=== PATIENT | female | born 1975 | race Caucasian/White ===

== ENCOUNTER → 2019-02-04 | Outpatient (CLI) | payer OTHER ==
[~2019-02-04] MED LIST: IBUP200T2 PO; PRIL20TA2 PO
--- NOTE | 2019-02-04 17:42 | REPMRS ---
Patient History Family history of breast cancer at age 50 or over in maternal grandmother, endometrial cancer under age 50 in mother. 3D TOMOSYNTHESIS WAS PERFORMED. Digital Mammo Screening Bilat: February 04, 2019 - Exam #: [id number] Bilateral CC and MLO view(s) were taken. Technologist: Christen Billingsley, Technologist FINDINGS: The breast tissue is heterogeneously dense. This may lower the sensitivity of mammography. There is no evidence of cancer on this mammogram. Assessment: BI-RADS/ACR category 2 mammogram. Benign Findings. Recommendation Routine screening mammogram of both breasts in 1 year (for women over age 40). This mammogram was interpreted with the aid of an FDA-approved computer-aided dectection system. Electronically Signed By: Mario Topete MD 02/04/19 0797
== END ==
LOC: M RAD 15:11
PROVIDERS: ATTEND Family Medicine
DX: Z12.31 Encounter for screening mammogram for malignant neoplasm of breast (principal)

== ENCOUNTER → 2019-02-25 | Outpatient (REF) | payer OTHER ==
[2019-02-25 18:56] LABS: BASO # 0.1 10^3/uL (0.0-0.2); BASO % 0.7 % (0.0-1.0); EOS # 0.2 10^3/uL (0.0-0.50); EOS % 2.5 % (0.0-3.0); HEMATOCRIT 42.3 % (36.0-47.0); HEMOGLOBIN 13.9 g/dl (12.0-15.5); LYMPH # 1.4 10^3/uL (1.5-4.5); MEAN CORPUSCULAR HEMOGLOBIN 30.4 pg (27.0-33.0); MEAN CORPUSCULAR HGB CONC 32.9 g/dl (32.0-36.5); MEAN CORPUSCULAR VOLUME 92.6 fl (80.0-96.0); MONO # 0.5 10^3/uL (0.0-0.8); MONO % 6.5 % (0.0-5.0); NEUTROPHILS % 70.5 % (36.0-66.0); PLATELET COUNT, AUTOMATED 255 10^3/uL (150-450); RED BLOOD COUNT 4.57 10^6/uL (4.00-5.40); WHITE BLOOD COUNT 7.1 10^3/uL (4.0-10.0)
[2019-02-25 19:09] LABS: ALBUMIN 3.6 GM/DL (3.2-5.2); ALT/SGPT 36 U/L (12-78); BILIRUBIN,TOTAL 0.4 MG/DL (0.2-1.0); BLOOD UREA NITROGEN 6 MG/DL (7-18); CALCIUM LEVEL 8.8 MG/DL (8.5-10.1); CARBON DIOXIDE LEVEL 27 MEQ/L (21-32); CHLORIDE LEVEL 106 MEQ/L (98-107); CHOLESTEROL LEVEL 222 MG/DL (<200); CREATININE FOR GFR 0.71 MG/DL (0.55-1.30); FREE T4 0.84 NG/DL (0.76-1.46); GLOMERULAR FILTRATION RATE > 60.0 (>58); GLUCOSE, FASTING 106 MG/DL (70-100); HDL CHOLESTEROL 40 MG/DL (>40); LDL CHOLESTEROL 138 MG/DL (<100); NON-HDL-C 182 MG/DL; SODIUM LEVEL 140 MEQ/L (136-145); TOTAL 25(OH) VITAMIN D 10.1 NG/ML (30.0-100.0); TOTAL PROTEIN 6.7 GM/DL (6.4-8.2); TRIGLYCERIDES LEVEL 221 MG/DL (<150)
[2019-02-25 19:39] LABS: HEMOGLOBIN A1c 5.7 %
[2019-02-28 00:11] LABS: Lyme Disease IgG/IgM Antibodie <0.91 ISR (0.00-0.90); Lyme Disease IgM Ab Quantitati <0.80 index (0.00-0.79)
== END ==
LOC: M LAB REF 16:54
PROVIDERS: ATTEND Family Medicine
DX: Z13.228 Encounter for screening for other metabolic disorders (principal)

== ENCOUNTER 2019-05-03 16:32 | Emergency (ER) | payer OTHER ==
[~2019-05-03] VITALS: Ht 162.6 cm; Wt 90.9 kg
[2019-05-03] MEDS ORDERED: SERT-138 (16:42)
[2019-05-03] MEDS ORDERED: ESCI10TA2 (16:42)
[2019-05-03 18:00] LABS: BASO % 0.5 % (0.0-1.0); EOS # 0.2 10^3/uL (0.0-0.50); EOS % 2.3 % (0.0-3.0); HEMATOCRIT 41.2 % (36.0-47.0); HEMOGLOBIN 13.8 g/dl (12.0-15.5); LYMPH # 2.1 10^3/uL (1.5-4.5); LYMPH % 25.2 % (24.0-44.0); MEAN CORPUSCULAR HEMOGLOBIN 31.9 pg (27.0-33.0); MEAN CORPUSCULAR HGB CONC 33.5 g/dl (32.0-36.5); MEAN CORPUSCULAR VOLUME 95.4 fl (80.0-96.0); MONO # 0.6 10^3/uL (0.0-0.8); MONO % 6.9 % (0.0-5.0); NEUTROPHILS # 5.3 10^3/uL (1.8-7.7); NEUTROPHILS % 64.2 % (36.0-66.0); PLATELET COUNT, AUTOMATED 257 10^3/uL (150-450); RED BLOOD COUNT 4.32 10^6/uL (4.00-5.40); WHITE BLOOD COUNT 8.2 10^3/uL (4.0-10.0)
[2019-05-03 18:18] LABS: ERYTHROCYTE SEDIMENTATION RATE 6 mm/hr (0-20)
[2019-05-03 18:30] LABS: BLOOD UREA NITROGEN 6 MG/DL (7-18); CALCIUM LEVEL 9.1 MG/DL (8.5-10.1); CARBON DIOXIDE LEVEL 29 MEQ/L (21-32); CHLORIDE LEVEL 107 MEQ/L (98-107); CREATININE FOR GFR 0.73 MG/DL (0.55-1.30); GLOMERULAR FILTRATION RATE > 60.0 (>58); GLUCOSE, FASTING 94 MG/DL (70-100); POTASSIUM SERUM 3.8 MEQ/L (3.5-5.1); SODIUM LEVEL 142 MEQ/L (136-145)
--- NOTE | 2019-05-03 18:30 | REPVR ---
EXAM: US Duplex Left Lower Extremity Veins, Limited EXAM DATE/TIME: 05/03/2019 5:56 PM CLINICAL HISTORY: 43 years old, female; Pain; Leg, lower; Left; Additional info: Pain, swelling left calf R/O dvt vs superficial phlebitis TECHNIQUE: Imaging protocol: Real-time Duplex ultrasound of the Left Lower Extremity with 2-D byrnes scale, color Doppler flow and spectral waveform analysis with image documentation. Limited exam focused on the left lower extremity veins. COMPARISON: No relevant prior studies available. FINDINGS: Veins appear normally compressible with no intraluminal filling defects. Doppler waveforms and flow directionality are normal. A tributary of the greater saphenous vein demonstrates intraluminal clot within the subcutaneous tissues in the mid calf No abnormal focal fluid collections identified. IMPRESSION: No evidence of deep venous thrombosis in the left lower extremity venous system. Likely superficial thrombophlebitis, medial calf vein Electronically signed by: Marcus Epstein On 05/03/2019 18:30:44 PM
[2019-05-03 18:42] VITALS: BP 130/78
[2019-05-03] MEDS ORDERED: IBUP-1022 PO (18:52)
== END 2019-05-03 18:55 | disposition home or self-care (01) ==
LOC: M ED 16:32
DX: I80.02 Phlebitis and thrombophlebitis of superficial vessels of left lower extremity (principal); K21.9 Gastro-esophageal reflux disease without esophagitis; F41.9 Anxiety disorder, unspecified; F17.200 Nicotine dependence, unspecified, uncomplicated; Z79.899 Other long term (current) drug therapy

== ENCOUNTER → 2020-03-09 | Outpatient (CLI) | payer OTHER ==
[~2020-03-09] MED LIST changes: +ESCI10TA2; +IBUP-1022 PO; +SERT-138
--- NOTE | 2020-03-10 07:28 | REP ---
REASON: Atraumatic pain. FINDINGS: No acute fracture or destructive osseous lesion. Electronically Signed by David Curiel DO 03/10/2020 09:32 A
== END ==
LOC: M WUC 14:11
PROVIDERS: ATTEND Nurse Practitioner Family
DX: M25.531 Pain in right wrist (principal)

== ENCOUNTER → 2020-06-24 | Outpatient (REF) | payer OTHER, MEDICAID ==
[2020-06-24 12:16] LABS: BASO # 0.1 10^3/uL (0.0-0.2); BASO % 0.8 % (0.0-1.0); EOS # 0.2 10^3/uL (0.0-0.5); EOS % 2.5 % (0.0-3.0); HEMATOCRIT 45.5 % (36.0-47.0); HEMOGLOBIN 14.5 g/dl (12.0-15.5); LYMPH # 2.3 10^3/uL (1.5-5.0); LYMPH % 25.8 % (24.0-44.0); MEAN CORPUSCULAR HEMOGLOBIN 29.7 pg (27.0-33.0); MEAN CORPUSCULAR HGB CONC 31.9 g/dl (32.0-36.5); MEAN CORPUSCULAR VOLUME 93.2 fl (80.0-96.0); MONO # 0.5 10^3/uL (0.0-0.8); MONO % 5.8 % (0.0-5.0); NEUTROPHILS # 5.9 10^3/uL (1.5-8.5); NEUTROPHILS % 64.7 % (36.0-66.0); PLATELET COUNT, AUTOMATED 334 10^3/uL (150-450); RED BLOOD COUNT 4.88 10^6/uL (4.00-5.40); WHITE BLOOD COUNT 9.1 10^3/uL (4.0-10.0)
[2020-06-24 12:23] LABS: APPEARANCE, URINE CLEAR (CLEAR); BACTERIA, URINE AUTO NEGATIVE (NEGATIVE); BILIRUBIN, URINE AUTO NEGATIVE (NEGATIVE); BLOOD, URINE BLOOD NEGATIVE (NEGATIVE); COLOR, URINE YELLOW (YELLOW); GLUCOSE, URINE (UA) AUTO NEGATIVE (NEGATIVE); KETONE, URINE AUTO NEGATIVE (NEGATIVE); LEUKOCYTE ESTERASE, URINE AUTO NEGATIVE (NEGATIVE); NITRITE, URINE AUTO NEGATIVE (NEGATIVE); PROTEIN, URINE AUTO NEGATIVE (NEGATIVE); RBC, URINE AUTO 1 /HPF (0-3); SPECIFIC GRAVITY URINE AUTO 1.014 (1.002-1.035); SQUAMOUS EPITHELIAL CELL UR AU 0 /HPF (0-6); UROBILINOGEN, URINE AUTO 0.2 mg/dL (0.0-2.0); WBC, URINE AUTO 4 /HPF (0-3)
[2020-06-24 12:50] LABS: ALBUMIN 3.6 GM/DL (3.2-5.2); ALT/SGPT 50 U/L (12-78); BILIRUBIN,TOTAL 0.4 MG/DL (0.2-1.0); BLOOD UREA NITROGEN 8 MG/DL (7-18); CALCIUM LEVEL 9.1 MG/DL (8.5-10.1); CARBON DIOXIDE LEVEL 29 MEQ/L (21-32); CHLORIDE LEVEL 107 MEQ/L (98-107); CHOLESTEROL LEVEL 217 MG/DL (<200); CHOLESTEROL RISK RATIO 4.254 (<5); CREATININE FOR GFR 0.79 MG/DL (0.55-1.30); GLOMERULAR FILTRATION RATE > 60.0 (>58); GLUCOSE, FASTING 96 MG/DL (70-100); HDL CHOLESTEROL 51 MG/DL (>40); LDL CHOLESTEROL 145 MG/DL (<100); NON-HDL-C 166 MG/DL; POTASSIUM SERUM 4.4 MEQ/L (3.5-5.1); SODIUM LEVEL 139 MEQ/L (136-145); TOTAL PROTEIN 6.8 GM/DL (6.4-8.2); TRIGLYCERIDES LEVEL 107 MG/DL (<150)
[2020-06-24 13:05] LABS: HEMOGLOBIN A1c 5.5 %
== END ==
LOC: M LAB REF 11:39
PROVIDERS: ATTEND Nurse Practitioner Family
DX: E78.5 Hyperlipidemia, unspecified (principal); E66.9 Obesity, unspecified; R73.03 Prediabetes; F17.200 Nicotine dependence, unspecified, uncomplicated; K21.9 Gastro-esophageal reflux disease without esophagitis; F41.1 Generalized anxiety disorder

== ENCOUNTER 2020-08-23 15:14 | Inpatient (IN) | payer OTHER, MEDICAID ==
[~2020-08-23] VITALS: Ht 163.8 cm; Wt 89.7 kg
[2020-08-23] MEDS ORDERED: NS 1,000 ML IV ONE (17:15)
[2020-08-23] MEDS ORDERED: MORPHINE 4 MG/ML 1ML VIAL/SYRINGE (J2270) IV ONE (17:15)
[2020-08-23] MEDS ORDERED: NORCO, ANEXSIA 5/325MG TABLET (HYDROcodone/ACETAMINOPHEN) PO ONE (17:30)
[2020-08-23] MEDS ORDERED: ACETAMINOPHEN 500 MG TAB PO ONE (17:30)
[2020-08-23 17:48] LABS: BASO # 0.1 10^3/uL (0.0-0.2); BASO % 0.4 % (0.0-1.0); EOS % 0.2 % (0.0-3.0); HEMATOCRIT 44.1 % (36.0-47.0); HEMOGLOBIN 14.8 g/dl (12.0-15.5); LYMPH # 1.9 10^3/uL (1.5-5.0); LYMPH % 15.1 % (24.0-44.0); MEAN CORPUSCULAR HEMOGLOBIN 31.1 pg (27.0-33.0); MEAN CORPUSCULAR HGB CONC 33.6 g/dl (32.0-36.5); MEAN CORPUSCULAR VOLUME 92.6 fl (80.0-96.0); NEUTROPHILS # 9.6 10^3/uL (1.5-8.5); NEUTROPHILS % 75.8 % (36.0-66.0); PLATELET COUNT, AUTOMATED 259 10^3/uL (150-450); RED BLOOD COUNT 4.76 10^6/uL (4.00-5.40); WHITE BLOOD COUNT 12.6 10^3/uL (4.0-10.0)
[2020-08-23 17:59] LABS: ALBUMIN 3.5 GM/DL (3.2-5.2); ALT/SGPT 28 U/L (12-78); BILIRUBIN,DIRECT 0.3 MG/DL (0.0-0.2); BILIRUBIN,TOTAL 0.8 MG/DL (0.2-1.0); BLOOD UREA NITROGEN 3 MG/DL (7-18); CALCIUM LEVEL 9.3 MG/DL (8.5-10.1); CARBON DIOXIDE LEVEL 30 MEQ/L (21-32); CHLORIDE LEVEL 99 MEQ/L (98-107); CREATININE FOR GFR 0.64 MG/DL (0.55-1.30); GLOMERULAR FILTRATION RATE > 60.0 (>58); GLUCOSE, FASTING 97 MG/DL (70-100); LIPASE 37 U/L (73-393); POTASSIUM SERUM 3.3 MEQ/L (3.5-5.1); SODIUM LEVEL 135 MEQ/L (136-145); TOTAL PROTEIN 7.2 GM/DL (6.4-8.2)
[2020-08-23 18:06] LABS: HCG, SERUM QUALITATIVE NEGATIVE (NEGATIVE)
[2020-08-23] MEDS ORDERED: ISOVUE-370 76% 100ML VIAL As Ordered ONE (19:07)
--- NOTE | 2020-08-23 20:12 | REPVR ---
PROCEDURE INFORMATION: Exam: CT Abdomen And Pelvis With Contrast Exam date and time: 08/23/2020 7:35 PM Age: 44 years old Clinical indication: Abdominal pain; Localized; Right lower quadrant (rlq); Additional info: Periumbilical pain radiating to rlq TECHNIQUE: Imaging protocol: Computed tomography of the abdomen and pelvis with intravenous contrast. Radiation optimization: All CT scans at this facility use at least one of these dose optimization techniques: automated exposure control; mA and/or kV adjustment per patient size (includes targeted exams where dose is matched to clinical indication); or iterative reconstruction. Contrast material: ISOVUE 370; Contrast volume: 100 ml; Contrast route: INTRAVENOUS (IV); COMPARISON: No relevant prior studies available. FINDINGS: Lungs: Small ground-glass opacity right lung base measures 4.6 mm.No routine follow-up is indicated. (Reference: Lilly) Liver: Normal. No mass. Gallbladder and bile ducts: Normal. No calcified stones. No ductal dilation. Pancreas: Normal. No ductal dilation. Spleen: Normal. No splenomegaly. Adrenal glands: Normal. No mass. Kidneys and ureters: 1.7 cm complex partially solid enhancing exophytic lesion projecting off the lateral margin of the right kidney measures 1.7 cm. Findings worrisome for a small renal neoplasm. Stomach and bowel: Inflammatory changes demonstrated in the duodenal sweep, likely reactive related to adjacent inflammation. Appendix: There is gross expansion of the appendix with cystic dilatation of the tip of the appendix measuring 2.7 cm demonstrating mural calcification. Extensive periappendiceal inflammation is demonstrated as well. No drainable abscess demonstrated at this time. Intraperitoneal space: Unremarkable. No free air. No significant fluid collection. Vasculature: The aortoiliac vessels demonstrate mild atherosclerotic calcification. Lymph nodes: Unremarkable. No enlarged lymph nodes. Urinary bladder: Unremarkable as visualized. Reproductive: 2.1 cm cyst right ovary likely functional. Bones/joints: Moderate to severe central spinal stenosis L4-L5. Soft tissues: Unremarkable. IMPRESSION: 1. Abnormal appendix as described above. Findings suggestive of appendicitis associated with mucocele of the appendix. 2. 1.7 cm complex partially solid enhancing exophytic lesion projecting off the lateral margin of the right kidney measures 1.7 cm. Findings worrisome for a small renal neoplasm. COMMENTS: Consistent with the [employer]'s Incidental Findings Committee white paper (J Am Cole Radiol 2018): Any incidental renal lesion less than 1 cm or classified as too small to characterize, or any incidental cystic renal lesion characterized as simple-appearing, is likely benign. No follow-up imaging is recommended for these lesions per consensus recommendations based on imaging criteria. REFERENCES: Lilly Ta, et al. Guidelines for Management of Incidental Pulmonary Nodules Detected on CT Images: From the Fleischner Society 2017. Radiology. 2017;284(1):228-243. Electronically signed by: Bean Natarajan On 08/23/2020 20:11:59 PM
[2020-08-23] MEDS ORDERED: OMEP-218 PO (20:58)
[2020-08-23] MEDS ORDERED: VITA50005 PO (20:58)
[2020-08-23] MEDS ORDERED: LEXA1TAB PO (20:58)
[2020-08-23] MEDS ORDERED: IBUP1TAB7 PO (20:58)
[2020-08-23] MEDS ORDERED: metroNIDAZOLE 500 MG in IV 1 EA IV ONE (22:00)
[2020-08-23] MEDS ORDERED: CIPROFLOXACIN 400 MG in IV 1 EA IV ONE (22:00)
[2020-08-23] MEDS ORDERED: ONDANSETRON 4MG/2ML VIAL As Ordered ONE (22:45)
[2020-08-23] MEDS ORDERED: propofoL 200 MG/20 ML VIAL As Ordered ONE (22:45)
[2020-08-23] MEDS ORDERED: ROCURONIUM BROMIDE 50 MG/5 ML VIAL As Ordered ONE (22:45)
[2020-08-23] MEDS ORDERED: LIDOCAINE 2% 100MG/5ML SDV (FOR ANES.) As Ordered ONE (22:45)
[2020-08-23] MEDS ORDERED: MIDAZOLAM INJ 2MG/2ML VIAL (J2250 PER 1MG) As Ordered ONE (22:47)
[2020-08-23] MEDS ORDERED: dexameTHASONE 4 MG/ML 1ML VIAL (J1100 PER 1MG) As Ordered ONE (22:48)
[2020-08-23] MEDS ORDERED: fentaNYL 100 MCG/2 ML INJECTION (J3010) As Ordered ONE (22:49)
[2020-08-23] MEDS ORDERED: BUPIVACAINE HCL 0.25% 30ML VIAL As Ordered ONE (23:33)
[2020-08-23] MEDS ORDERED: metroNIDAZOLE/NACL 500MG(5MG/ML) 100ML BAG (S0030) As Ordered ONE (23:33)
[2020-08-23] MEDS ORDERED: KETOROLAC 60MG 2ML VIAL As Ordered ONE (23:47)
[2020-08-23] MEDS ORDERED: ACETAMINOPHEN 1000MG 100ML IV BTL (OFIRMEV) (J0131 PER 10MG) As Ordered ONE (23:57)
[2020-08-24] VITALS (8 sets, daily range): BP systolic 114–154; BP diastolic 72–88
[2020-08-24] MEDS ORDERED: ROCURONIUM BROMIDE 50 MG/5 ML VIAL As Ordered ONE (00:22)
[2020-08-24] MEDS ORDERED: PHENYLephrine HCL 500 MCG/5 ML (100MCG/ML) SYRINGE (J2370) As Ordered ONE (00:29)
[2020-08-24] MEDS ORDERED: fentaNYL 100 MCG/2 ML INJECTION (J3010) As Ordered ONE ×2 (00:33→02:24)
[2020-08-24] MEDS ORDERED: SUGAMMADEX SODIUM 500 MG/5 ML VIAL (BRIDION) As Ordered ONE (00:37)
[2020-08-24] MEDS ORDERED: HYDROmorphone HCL 2 MG/ML 1ML VIAL (J1170) As Ordered ONE (01:46)
[2020-08-24] MEDS ORDERED: LR 1,000 ML IV SCH (02:00)
[2020-08-24] MEDS ORDERED: ONDANSETRON 4MG/2ML VIAL IV PRN ×2 (02:00→02:15)
[2020-08-24] MEDS ORDERED: METOCLOPRAMIDE INJ 10MG/2ML VIAL (J2765 PER 1) IV PRN (02:00)
[2020-08-24] MEDS ORDERED: oxyCODONE 5MG TAB PO PRN (02:00)
[2020-08-24] MEDS: fentaNYL 100 MCG/2 ML INJECTION (J3010) IV PRN ×4 (02:25→02:40)
[2020-08-24] MEDS: LR 1,000 ML IV SCH ×3 (03:37→14:10)
[2020-08-24] MEDS: IBUPROFEN 600MG TAB PO PRN ×2 (03:48→10:01)
[2020-08-24] MEDS: MORPHINE 2 MG/ML 1ML VIAL (J2270) IV PRN ×3 (05:40→22:17)
[2020-08-24] MEDS: ESCITALOPRAM OXALATE 10 MG TAB (LEXAPRO) PO SCH (08:10)
[2020-08-24] MEDS: metroNIDAZOLE 500 MG in IV 1 EA IV SCH ×2 (08:10→15:58)
[2020-08-24] MEDS: CIPROFLOXACIN 400 MG in IV 1 EA IV SCH ×2 (10:02→22:18)
[2020-08-24 10:18] LABS: BASO % 0.1 % (0.0-1.0); HEMATOCRIT 36.8 % (36.0-47.0); HEMOGLOBIN 12.2 g/dl (12.0-15.5); LYMPH # 1.2 10^3/uL (1.5-5.0); LYMPH % 8.5 % (24.0-44.0); MEAN CORPUSCULAR HEMOGLOBIN 30.6 pg (27.0-33.0); MEAN CORPUSCULAR HGB CONC 33.2 g/dl (32.0-36.5); MEAN CORPUSCULAR VOLUME 92.2 fl (80.0-96.0); MONO % 7.2 % (0.0-5.0); NEUTROPHILS # 11.4 10^3/uL (1.5-8.5); PLATELET COUNT, AUTOMATED 235 10^3/uL (150-450); RED BLOOD COUNT 3.99 10^6/uL (4.00-5.40); WHITE BLOOD COUNT 13.8 10^3/uL (4.0-10.0)
[2020-08-24] MEDS: ACETAMINOPHEN TAB 650MG DOSE (2X325MG) PO PRN (13:47)
[2020-08-25] MEDS: metroNIDAZOLE 500 MG in IV 1 EA IV SCH ×2 (00:17→07:48)
[2020-08-25] MEDS: IBUPROFEN 600MG TAB PO PRN (01:51)
[2020-08-25 02:00] VITALS: BP 119/79
[2020-08-25] MEDS: MORPHINE 2 MG/ML 1ML VIAL (J2270) IV PRN (02:36)
[2020-08-25 06:00] VITALS: BP 121/80
[2020-08-25] MEDS: ACETAMINOPHEN TAB 650MG DOSE (2X325MG) PO PRN (06:23)
[2020-08-25 06:48] LABS: BASO % 0.4 % (0.0-1.0); EOS # 0.1 10^3/uL (0.0-0.5); EOS % 0.8 % (0.0-3.0); HEMOGLOBIN 11.5 g/dl (12.0-15.5); LYMPH # 1.8 10^3/uL (1.5-5.0); LYMPH % 21.5 % (24.0-44.0); MEAN CORPUSCULAR HEMOGLOBIN 29.2 pg (27.0-33.0); MEAN CORPUSCULAR HGB CONC 31.1 g/dl (32.0-36.5); MEAN CORPUSCULAR VOLUME 93.9 fl (80.0-96.0); MONO # 0.9 10^3/uL (0.0-0.8); MONO % 10.1 % (0.0-5.0); NEUTROPHILS # 5.7 10^3/uL (1.5-8.5); NEUTROPHILS % 66.6 % (36.0-66.0); PLATELET COUNT, AUTOMATED 249 10^3/uL (150-450); RED BLOOD COUNT 3.94 10^6/uL (4.00-5.40); WHITE BLOOD COUNT 8.5 10^3/uL (4.0-10.0)
[2020-08-25] MEDS: ESCITALOPRAM OXALATE 10 MG TAB (LEXAPRO) PO SCH (07:48)
[2020-08-25] MEDS ORDERED: BACITRACIN OINTMENT 30GM TUBE TOP SCH (09:00)
[2020-08-25] MEDS ORDERED: OMEPRAZOLE 20 MG CAP PO SCH (09:00)
[2020-08-25] MEDS ORDERED: NORCO, ANEXSIA 5/325MG TABLET (HYDROcodone/ACETAMINOPHEN) PO PRN (09:00)
[2020-08-25 10:00] VITALS: BP 121/81
[2020-08-25] MEDS: CIPROFLOXACIN 400 MG in IV 1 EA IV SCH (10:11)
[2020-08-25 14:00] VITALS: BP 120/79
[2020-08-25] MEDS ORDERED: HYDR-3715 PO (17:07)
[2020-08-25] MEDS ORDERED: CIPR500T3 PO (17:07)
[2020-08-25] MEDS ORDERED: FLAG500T PO (17:07)
--- NOTE | 2020-08-26 13:02 | RO ---
OPERATIVE NOTE DATE OF OPERATION: 08/23/2020 Procedure concluded in the talent acquisition relationship manager of 08/24/2020. PREOPERATIVE DIAGNOSIS: Acute appendicitis. POSTOPERATIVE DIAGNOSIS: Adhesions secondary to prior hernia repair and acute appendicitis with abscess. PROCEDURE PERFORMED: Laparoscopic lysis of adhesions with appendectomy and drainage of abscess. SURGEON: Balta Morgan MD ANESTHESIA: General. INDICATIONS FOR THE PROCEDURE: The patient is a 44-year-old woman who presented to the emergency department with roughly three day history of abdominal discomfort. She was found to have an elevation of the white count with tenderness in the right mid and upper abdomen. CT scan showed evidence for appendicitis with marked dilation of the tip of the appendix with the location of the appendix in the retroperitoneum on the right medial to the ascending colon and posterior to the terminal ileum. She was scheduled for urgent appendectomy. OPERATIVE PROCEDURE: The patient was brought to the operating room and placed on the table in supine position. She was placed under general endotracheal anesthesia. The patient's abdomen was prepped and draped in sterile fashion. She had undergone a previous open umbilical hernia repair with placement of mesh. An initial trocar site was placed in the left upper quadrant. 0.25% Marcaine was infiltrated at each of the trocar sites as needed. A Veress needle was inserted and after positive hanging drop test the abdomen was insufflated with CO2 gas. A 5 mm port was placed over a 5 mm scope and advanced through the abdominal wall without difficulty. Initial examination showed fairly extensive adhesions of the omentum to the anterior abdominal wall with evidence for a small piece of mesh at the umbilicus. A second 5 mm port was placed in the left lower quadrant. Using cauterizing scissors the adhesions to the anterior abdominal wall were taken down using combination of sharp and cautery dissection. After the adhesions had been eliminated a third 5 mm port was placed in the medial portion of the right lower quadrant. Graspers were inserted. Cecum was identified in the right mid abdomen and this was elevated. The very base of the appendix was visible but the appendix then tracked superiorly posterior to the terminal ileum. There was significant adhesion to the appendix in the retroperitoneum and it was not possible to readily elevate the terminal ileum. The patient was rolled slightly to the left and tilted into Trendelenburg position to try to shift the small bowel out of the way somewhat. The terminal ileum was adherent down over the appendix. I elected to transect the base of the appendix and then remove the appendix in retrograde fashion. Therefore, opening was created through the mesoappendix at the appendiceal base. An 11 mm port was placed through a short supraumbilical incision and a stapler was inserted with a blue load and placed across the base of the appendix and fired. Hemostasis was excellent. The base of the appendix was then grasped and elevated. Dissection was then begun to try to remove the appendix from the retroperitoneum. I obtained a Harmonic scalpel to use during this portion of the procedure. Working through the tissues of the mesoappendix and creating a plane by blunt and cautery dissection between the appendix and the surrounding tissues I was able to elevate the terminal ileum away from the markedly inflamed appendix. In the course of dissection the retroperitoneal duodenum was exposed but protected. In the course of dissection an abscess was entered and large amount of thick purulent fluid was released just into the immediate area and this was immediately suctioned and irrigated. Dissection proceeded lifting the cecum and freeing the ascending colon from the retroperitoneum to better expose the appendix. Ultimately the appendix was completely freed. This was placed in an Endopouch with an attached portion of the mesoappendix. The area of the dissection was then copiously irrigated with saline and inspected. The cecum and proximal ascending colon had been completely freed to expose the area. There was a segment of the retroperitoneal duodenal, perhaps 4-5 cm in length that was completely exposed but there was no evidence of injury. The overlying terminal ileum was also intact but showed an area of inflammation where it had been attached down over the inflamed appendix and the abscess. I elected to place a drain into this area. A separate small incision was made in the right flank area far lateral in the right upper quadrant. A 19-Fijian Joni drain was inserted through the 11mm port and directed out through the right flank incision. This was directed posterior to the ascending colon and across through the retroperitoneum behind the terminal ileum in the area of her previous abscess. The patient was then rolled back to a flat position. The abdomen was deflated and the trocars were removed. The appendix was recovered through the supraumbilical site which necessitated extending the incision slightly. This was sent for permanent pathology. The fascia at the supraumbilical site was closed with 2-0 Vicryl. The skin incisions were all closed with buried 4-0 Vicryl and Steri-Strips. The drain was sutured to the skin with 2-0 silk and then dressed with Chlorhexidine and gluconate Op-Site. The drain was connected to Ken-Aleman bulb. The patient tolerated the procedure well without apparent complications. She was awakened in the operating room, extubated and moved to the recovery room in stable condition. NHAN
--- NOTE | 2020-08-26 18:41 | IPN ---
PROGRESS NOTE DATE: 08/25/2020 HISTORY: The patient is now postop day approximately one and a half from her laparoscopic appendectomy for appendicitis with abscess. Her surgery was completed at approximately 2:00 in the morning on the . A drain was placed into the bed of the abscess. She has done very well over the last 24 hours. PHYSICAL EXAMINATION: Vital signs showed that the patient has been afebrile over the last 24 hours. Her pulse is in the 80s generally with a blood pressure that is good and a good room air oxygen saturation. Intake and output shows that yesterday she had 4600 mL in, 3 liters of which was oral and she had 1500 mL out. Her drain put out 110 mL yesterday with about 40 mL today. The patient is sitting up in bed. She appears somewhat uncomfortable. Heart exam shows a regular rhythm and the lungs are clear. The abdomen is obese. Her drain exits the right flank and has a minimal amount of serosanguineous fluid in it. Her dressings are clean and dry. She has some mild tenderness fairly diffusely but not out of proportion to what would be expected. She does have active bowel sounds. Laboratory studies show a white count today of 8, hemoglobin 12, hematocrit 37, and a platelet count of 249,000. Her differential count has nearly normalized with 67% neutrophils, 22% lymphocytes, and 10% monocytes. Her pathology report revealed acute appendicitis with periappendicitis and was negative for tumor. IMPRESSION: The patient is doing well now a day and a half postop from her appendicitis with abscess. I had her drain removed after initially seeing her on the morning of the . Later in the day she seemed much more comfortable with the drain out and is eager for discharge. PLAN: The patient will be discharged home today. She will be discharged on antibiotics consisting of Ciprofloxacin 500 mg by mouth twice daily and metronidazole 500 mg by mouth three times daily both of which will be continued for three days to complete approximately five days of antibiotics. I will also provide her a prescription for [place] to take on an as needed basis with a total of eight tablets provided. She will continue her other preadmission medications. She was advised against any strenuous activity for two weeks. She can shower tomorrow when it is 24 hours since her drain has been removed. She should call the office on Sunday the to arrange a followup in seven to ten days from now. She should call the office for any problems. NHAN
== END 2020-08-25 17:25 | disposition home or self-care (01) | DRG 225 ==
LOC: M ED 15:14 → M SDC 15:15 → M MS5PR 08-24 03:20 → M SDC 08-24 18:32 → M MS5PR 08-24 18:33
PROVIDERS: ADMIT Surgery; ATTEND Surgery
PROC: 0DTJ4ZZ Resection of Appendix, Percutaneous Endoscopic Approach (ICD-10-PCS; principal; 2020-08-23 20:30)
DX: K35.33 Acute appendicitis with perforation, localized peritonitis, and gangrene, with abscess (principal); F32.9 Major depressive disorder, single episode, unspecified; Z20.828 Contact with and (suspected) exposure to other viral communicable diseases; Z88.0 Allergy status to penicillin; Z88.1 Allergy status to other antibiotic agents; F41.9 Anxiety disorder, unspecified

== ENCOUNTER → 2021-01-12 | Outpatient (CLI) | payer OTHER ==
[~2021-01-12] MED LIST changes: +CIPR500T3 PO; +ESCI10TA16; -ESCI10TA2; +FLAG500T PO; +HYDR-3715 PO; +IBUP1TAB7 PO; +LEXA1TAB PO; +OMEP-218 PO; +VITA50005 PO
--- NOTE | 2021-01-12 16:54 | REPMRS ---
Patient History The patient states she has not had a clinical breast exam in over a year. Family history of breast cancer at age 50 or over in maternal grandmother, breast cancer at age 61 in mother. 15lb intentional weight loss. Patient states no breast complaints today. Patient has signed MRS History Sheet. Digital Woman Screen Mammo: January 12, 2021 - Exam #: [id number] Bilateral CC and MLO view(s) were taken. Technologist: RT Fabiola Prior study comparison: February 04, 2019, bilateral digital mammo screening bilat, performed at [facility]. FINDINGS: The breast tissue is heterogeneously dense. This may lower the sensitivity of mammography. Screening. Digital screening (2D) mammography was performed bilaterally in the CC and MLO projections. Additionally, breast tomosynthesis (3D mammography) was performed bilaterally in the CC and MLO projections. Todays exam was compared to the prior exams. By history, the patient has no complaints of a palpable breast abnormality or other significant breast complaints. The breasts are unchanged in size and shape.Once again, dense heterogenous fibroglandular elements are seen bilaterally in a stable appearing pattern but to such a degree that the sensitivity of the mammogram in detecting cancer is decreased. There are no richy-soft tissue densities or spiculated masses. There is no internal architectural distortion. There are no suspicious richy-calcific clusters. Skin thickening or nipple retraction is not present. IMPRESSION: BI-RADS Category 2- Benign Findings. There is no evidence of malignant alteration of the breasts. Followup examination recommended in one year. The Volpara volumetric breast density category is C, the breasts are heterogenously dense which may obscure small masses. This mammogram was read with the assistance of [employer],an FDA approved computer aided detection system for mammography. The lifetime Tyrer-Cuzick score is 22.8 % Negative x-ray reports should not delay surgical consultation if a dominant or clinically suspicious mass is present. Not all breast cancers can be identified by mammography. Therefore, we recommend that you continue to perform regular breast self-examination and physical examination and then promptly contact your physician of any concerns or changes. Adenosis and dense breasts may obscure an underlying neoplasm. Assessment: BI-RADS/ACR category 2 mammogram. Benign Findings. Recommendation Routine screening mammogram of both breasts in 1 year. Electronically Signed By: David Curiel DO 01/12/21 [id number]
== END ==
LOC: M WHC 16:00
PROVIDERS: ATTEND Nurse Practitioner Family
DX: Z12.31 Encounter for screening mammogram for malignant neoplasm of breast (principal)

== ENCOUNTER → 2022-08-22 | Outpatient (CLI) | payer OTHER ==
[~2022-08-22] MED LIST changes: +ERGO500029 PO; +OMEP-173 PO; -OMEP-218 PO; -VITA50005 PO
== END ==
LOC: M RAD 12:50
PROVIDERS: ATTEND Pediatrics
DX: R22.2 Localized swelling, mass and lump, trunk (principal)

== ENCOUNTER → 2022-09-08 | Outpatient (CLI) | payer OTHER | LOC: M PLARAD 13:02 | PROVIDERS: ATTEND Pediatrics | DX: R22.2 Localized swelling, mass and lump, trunk (principal) ==

== ENCOUNTER → 2022-11-01 | Outpatient (REF) | payer OTHER | LOC: M LAB REF 16:28 | PROVIDERS: ATTEND Surgery | DX: L72.3 Sebaceous cyst (principal) ==

== ENCOUNTER → 2023-01-17 | Outpatient (REF) | payer OTHER ==
[2023-01-17 17:31] LABS: BASO # 0.1 10^3/uL (0.0-0.2); EOS # 0.2 10^3/uL (0.0-0.5); EOS % 3.1 % (0.0-3.0); HEMOGLOBIN 15.8 g/dl (12.0-15.5); LYMPH # 2.6 10^3/uL (1.5-5.0); LYMPH % 38.6 % (24.0-44.0); MEAN CORPUSCULAR HEMOGLOBIN 31.3 pg (27.0-33.0); MEAN CORPUSCULAR HGB CONC 32.9 g/dl (32.0-36.5); MONO # 0.4 10^3/uL (0.0-0.8); MONO % 6.2 % (2.0-8.0); NEUTROPHILS # 3.4 10^3/uL (1.5-8.5); NEUTROPHILS % 50.5 % (36.0-66.0); PLATELET COUNT, AUTOMATED 304 10^3/uL (150-450); RED BLOOD COUNT 5.05 10^6/uL (4.00-5.40); WHITE BLOOD COUNT 6.8 10^3/uL (4.0-10.0)
[2023-01-17 17:41] LABS: CHOLESTEROL RISK RATIO 4.18 (<5); HDL CHOLESTEROL 50.9 MG/DL (>40); LDL CHOLESTEROL 140.3 MG/DL (<100); NON-HDL-C 162.1 MG/DL
[2023-01-17 17:44] LABS: FOLLICLE STIMULATING HORMONE 77.2 mIU/ML; LUTEINIZING HORMONE 37.9 mIU/ML
== END ==
LOC: M LAB REF 16:31
PROVIDERS: ATTEND Pediatrics
DX: E78.5 Hyperlipidemia, unspecified (principal); D75.1 Secondary polycythemia; N92.6 Irregular menstruation, unspecified; E55.9 Vitamin D deficiency, unspecified; R73.03 Prediabetes

== ENCOUNTER → 2023-10-31 | Outpatient (CLI) | payer OTHER | LOC: M WHC 15:08 | PROVIDERS: ATTEND Pediatrics | DX: Z12.31 Encounter for screening mammogram for malignant neoplasm of breast (principal) ==

== ENCOUNTER → 2024-07-07 | Outpatient (REF) | payer OTHER ==
[2024-07-07 18:41] LABS: THYROID STIMULATING HORMONE 1.837 uIU/ML (0.55-4.78); TOTAL 25(OH) VITAMIN D 53.4 NG/ML (20.0-100.0)
[2024-07-07 18:44] LABS: ALBUMIN 3.5 G/DL (3.2-5.2); ALKALINE PHOSPHATASE 66 U/L (35-104); ALT/SGPT 27 U/L (7.0-40); AST/SGOT 19 U/L (<34); BILIRUBIN,TOTAL 0.4 MG/DL (0.3-1.2); BLOOD UREA NITROGEN 6 MG/DL (9-23); CALCIUM LEVEL 9.5 MG/DL (8.5-10.1); CARBON DIOXIDE LEVEL 28 MMOL/L (20-31); CHLORIDE LEVEL 106 MMOL/L (98-107); CHOLESTEROL LEVEL 169 MG/DL (<200); CHOLESTEROL RISK RATIO 2.77 (<5); CREATININE FOR GFR 0.77 MG/DL (0.55-1.30); GLOMERULAR FILTRATION RATE > 60.0 (>58); GLUCOSE, FASTING 90 MG/DL (60-100); HDL CHOLESTEROL 60.9 MG/DL (>40); LDL CHOLESTEROL 76.7 MG/DL (<100); NON-HDL-C 108.1 MG/DL; POTASSIUM SERUM 4.3 MMOL/L (3.5-5.1); SODIUM LEVEL 142 MMOL/L (136-145); TOTAL PROTEIN 6.6 G/DL (5.7-8.2); TRIGLYCERIDES LEVEL 157 MG/DL (<150)
== END ==
LOC: M LAB REF 17:12
PROVIDERS: ATTEND Pediatrics
DX: E55.9 Vitamin D deficiency, unspecified (principal); E78.5 Hyperlipidemia, unspecified; K21.9 Gastro-esophageal reflux disease without esophagitis

== ENCOUNTER → 2024-12-31 | Outpatient (REF) | payer OTHER ==
[2024-12-31 18:23] LABS: BASO % 0.5 % (0.0-1.0); EOS # 0.2 10^3/uL (0.0-0.5); EOS % 2.1 % (0.0-3.0); HEMATOCRIT 44.3 % (36.0-47.0); HEMOGLOBIN 14.4 g/dl (12.0-15.5); LIPASE 24 U/L (12-53); LYMPH # 2.5 10^3/uL (1.5-5.0); LYMPH % 29.9 % (24.0-44.0); MEAN CORPUSCULAR HEMOGLOBIN 31.4 pg (27.0-33.0); MEAN CORPUSCULAR HGB CONC 32.5 g/dl (32.0-36.5); MEAN CORPUSCULAR VOLUME 96.7 fl (80.0-96.0); MONO # 0.5 10^3/uL (0.0-0.8); MONO % 5.5 % (2.0-8.0); NEUTROPHILS # 5.1 10^3/uL (1.5-8.5); NEUTROPHILS % 61.4 % (36.0-66.0); PLATELET COUNT, AUTOMATED 298 10^3/uL (150-450); RED BLOOD COUNT 4.58 10^6/uL (4.00-5.40); WHITE BLOOD COUNT 8.3 10^3/uL (4.0-10.0)
[2024-12-31 18:26] LABS: ALBUMIN 3.5 G/DL (3.2-5.2); ALKALINE PHOSPHATASE 58 U/L (35-104); ALT/SGPT 25 U/L (7.0-40); AST/SGOT 15 U/L (<34); BILIRUBIN,TOTAL 0.7 MG/DL (0.3-1.2); BLOOD UREA NITROGEN < 5 MG/DL (9-23); CARBON DIOXIDE LEVEL 29 MMOL/L (20-31); CHLORIDE LEVEL 105 MMOL/L (98-107); CREATININE FOR GFR 0.53 MG/DL (0.55-1.30); GLOMERULAR FILTRATION RATE > 90.0 (>58); GLUCOSE, FASTING 95 MG/DL (60-100); POTASSIUM SERUM 4.4 MMOL/L (3.5-5.1); SODIUM LEVEL 139 MMOL/L (136-145); TOTAL PROTEIN 6.4 G/DL (5.7-8.2)
== END ==
LOC: M LAB REF 12:00
PROVIDERS: ATTEND Physician Assistant
DX: R11.2 Nausea with vomiting, unspecified (principal); R10.32 Left lower quadrant pain

== ENCOUNTER 2025-04-02 10:43 | Day surgery (SDC) | payer OTHER ==
[~2025-04-02] VITALS: Ht 165.1 cm; Wt 87.2 kg
[~2025-04-02 10:43] MED LIST changes: +LIDOCAINE 2% 100 MG/5 ML SDV (FOR ANES.) As Ordered ONE
[2025-04-02] MEDS ORDERED: MIDAZOLAM INJ 2 MG/2 ML VIAL As Ordered ONE (11:59)
[2025-04-02 12:50] VITALS: BP 120/76; O2SAT 98
== END 2025-04-02 12:57 | disposition home or self-care (01) ==
LOC: M OPP 10:43
PROVIDERS: ATTEND Surgery
DX: K63.5 Polyp of colon (principal); K64.2 Third degree hemorrhoids; A63.0 Anogenital (venereal) warts; K57.30 Diverticulosis of large intestine without perforation or abscess without bleeding; K62.5 Hemorrhage of anus and rectum; K44.9 Diaphragmatic hernia without obstruction or gangrene; R12 Heartburn; Z88.0 Allergy status to penicillin; Z88.1 Allergy status to other antibiotic agents; Z79.899 Other long term (current) drug therapy; F17.210 Nicotine dependence, cigarettes, uncomplicated
CPT/HCPCS: 43235; 45380; 88305; J2250; J3010

== ENCOUNTER → 2025-04-15 | Outpatient (REF) | payer OTHER ==
[~2025-04-15] MED LIST changes: -LIDOCAINE 2% 100 MG/5 ML SDV (FOR ANES.) As Ordered ONE
== END ==
LOC: M LAB REF 16:37
PROVIDERS: ATTEND Surgery
DX: A63.0 Anogenital (venereal) warts (principal)